=== PATIENT | female | born 1980 | race Caucasian/White ===

== ENCOUNTER 2019-01-20 07:23 | Day surgery (SDC) | payer OTHER ==
[2019-01-20 07:56] LABS: HCG UR QUAL NEGATIVE
[2019-01-20] MEDS ORDERED: LACTATED RINGERS 1,000 ML IV ONE (08:20)
--- NOTE | 2019-01-20 08:36 | ANESTHESIA ---
Pre-Anesthesia VS, & Labs - Diagnosis left ovarian cyst, pelvic pain - Procedure left laparoscopic ovarian cystectomy Vital Signs: Temp Pulse Resp BP Pulse Ox 36.1 C L 78 16 125/74 100 01/20/19 07:45 01/20/19 07:45 01/20/19 07:45 01/20/19 07:45 01/20/19 07:45 Height 5 ft 4.17 in Weight (kg) 70.9 kg - NPO >8 hours - Is Patient ?: No - Lab Results Lab results reviewed: Yes Home Medications and Allergies Home Medications: Ambulatory Orders Cholecalciferol (Vitamin D3) [Vitamin D3] 1,000 unit PO 01/10/19 Cholecalciferol (Vitamin D3) [Vitamin D3] 1,000 unit PO 01/10/19 Allergies/Adverse Reactions: Allergies Allergy/AdvReac Type Severity Reaction Status Date / Time No Known Drug Allergies Allergy Verified 01/10/19 11:32 Anes History & Medical History - Anesthetic History Anesthesia Complications: reports: No previous complications Family history of Anesthesia Complications: Denies Family history of Malignant Hyperthermia: Denies - Medical History Cardiovascular: reports: None Pulmonary: reports: None Gastrointestinal: reports: None Urinary: reports: Other Musculoskeletal: reports: None Endocrine/Autoimmune: reports: None Skin: reports: None Exam General: Alert, Oriented x3, Cooperative, No acute distress Dental: WNL Mouth Openin Fingerbreadth Neck Mobility: Normal Mallampati classification: II Thyromental Distance: greater than 6 cm Respiratory: Lungs clear, Normal breath sounds, No respiratory distress, No accessory muscle use Cardiovascular: Regular rate, Normal S1, Normal S2, No murmurs Mental/Cognitive Status: Alert/Oriented X3, Normal for patient Cognitive Status: Within normal limits Plan Anesthesia Type: General Consent for Procedure(s) Verified and Reviewed: Yes Code Status: Attempt Resuscitation ASA classification: 1-Healthy patient Is this case an emergency?: No
[2019-01-20] MEDS ORDERED: BUPIVACAINE 0.25%-EPI 1:200000 PF 30 ML VIAL ONE (09:22)
[2019-01-20] MEDS ORDERED: PROPOFOL 200 MG/20 ML VIAL IVP ONE (10:00)
[2019-01-20] MEDS ORDERED: fentaNYL 100 MCG/2 ML VIAL IVP ONE (10:00)
[2019-01-20] MEDS ORDERED: LIDOCAINE-MPF 2% 5 ML VIAL IM ONE (10:00)
[2019-01-20] MEDS ORDERED: KETOROLAC 30 MG/ML VIAL IVP ONE (10:00)
[2019-01-20] MEDS ORDERED: GLYCOPYRROLATE 1 MG/5 ML VIAL IVP ONE (10:00)
[2019-01-20] MEDS ORDERED: ONDANSETRON 4 MG/2 ML VIAL IVP ONE (10:00)
[2019-01-20] MEDS ORDERED: DEXAMETHASONE 4 MG/ML VIAL IVP ONE (10:00)
[2019-01-20] MEDS ORDERED: MIDAZOLAM 2 MG/2 ML VIAL IVP ONE (10:00)
[2019-01-20] MEDS ORDERED: NEOSTIGMINE 1 MG/1 ML 10 ML MDV IVP ONE (10:00)
[2019-01-20] MEDS ORDERED: ROCURONIUM 50 MG/5 ML VIAL IVP ONE (10:00)
[2019-01-20] MEDS ORDERED: BUPIVACAINE 0.25%-EPI 1:200000 PF 10 ML VIAL SUBQ ONE (10:40)
[2019-01-20] MEDS ORDERED: HYDROcod/ACETAM 10 MG/325 MG TABLET PO PRN (11:03)
[2019-01-20] MEDS ORDERED: ONDANSETRON 4 MG/2 ML VIAL IVP PRN (11:03)
[2019-01-20] MEDS ORDERED: SILVER NITRATE APPLICATOR TOP ONE (11:10)
--- NOTE | 2019-01-20 11:20 | OPERATIVE REPORT ---
Operative Report - General Procedure Date: 01/20/19 Planned Procedure: Laparoscopic left ovarian cystectomy Pre-Op Diagnosis: Left ovarian cyst, left pelvic pain Procedure Performed: Laparoscopic left ovarian cystectomy, lysis of adhesions,fulguration of endometriosis Post Op Diagnosis: Endometriosis, VERONICA endometrioma, pelvic adhesions, simple ROV cyst - Procedure Note Primary Surgeon: Dr. Libra Montano Secondary Surgeon: Dr. Juvencio Shipley Anesthesia Provider: MALLY Adamson Anesthesia Technique: General ET tube, Local Pathology: None IV Fluids (mL): 300 Estimated Blood Loss (mL): 15 Urine Output (mL): 300 Complications: None - Other Other Information/Narrative: Indications: The patient is a 38-year-old 3 para 2 abortus 1 female here for laparoscopic surgery for evaluation and management of a persistent, enlarging complex left ovarian cyst, which may be contributing to her left pelvic and flank pain. Her pelvic ultrasound showed bilateral ovarian cysts, the left one appearing more complex, consistent with an endometrioma or benign solid tumor. A repeat ultrasound showed a right ovarian cyst that was resolving and simple in appearance but persistence and slight increase in size of the left ovarian cyst. The sono was initially completed in early September due to intermittent left lower quadrant left flank pain and sharp, deep dyspareunia that is pinching in quality. Her pain started with intermittent symptoms approximately 1 year ago and has gradually gotten worse. She has no other history of pelvic or abdominal pain and no history of dysmenorrhea. Menses are monthly and not heavy or painful. She has no intermenstrual bleeding, and she is using a ParaGard intrauterine device for control, which was placed after childbirth in 2014. She denies any bowel symptoms or bladder concerns.The risks, benefits, limitations, alternatives, and expectations of surgery were discussed. The consent was reviewed and signed prior to surgery. Findings: Exam under anesthesia noted the uterus was approximately 6 weeks in size and anteverted. There were no adnexal masses palpable. Operative findings were notable for visualization of the IUD strings (approximately 2 cm in length) prior to placement of the uterine manipulator. She had omental adhesions to the anterior peritoneum at the right lower quadrant extending to the midline. She had a second omental adhesion the right flank. The ovaries were adhered into the posterior cul-de-sac. Upon attempting to dissect the left ovary out, the cyst ruptured incidentally, and chocolate-like fluid was present, consistent with an endometrioma. Endometriosis lesions were noted on the left fallopian tube (cauterized) and anterior sigmoid colon (not cauterized). The right ovary was adhered to the posterior lower uterine segment and appeared to have a simple-appearing cyst, approximately 2 cm in diameter. The uterus and anterior cul-de-sac were normal in appearance. The fallopian tubes appeared edematous with viable-appearing fimbriated ends. The sigmoid colon was adhered into the posterior cul-de-sac as well. The deep cul-de-sac could not be visualized secondary to the adhesed organs. The liver edge and appendix were visualized and appeared normal. Procedure: The patient was taken to the operating room, where general endotracheal anesthesia was administered without difficulty. She was then positioned in the low dorsal lithotomy position with her lower extremities in Yellow Fin stirrups. Vagina, perineum, and abdomen were then prepped and draped in a sterile fashion, and a muniz catheter was placed for the duration of the surgery. Procedure Time-Out was then performed. A sterile bivalve speculum was then inserted into the vagina. The anterior lip of the cervix was grasped with a single-tooth tenaculum, then a Hulka tenaculum placed for uterine manipulation (given the presence of an IUD). The single-toothed tenaculum and speculum were then removed, and attention was turned to the laparoscopy. Quarter Marcaine was injected infraumbilically, then a 7-mm horizontal skin incision made. A Verrees needle was then inserted through the anterior layers of the abdominal wall with saline drop test suggesting intraperitoneal placement. Carbon dioxide gas insufflation was then performed with appropriate opening pressures noted. Once 2 L of gas was instilled, a 0-degree, 5 mm laparoscope was inserted into a 5 mm trocar and passed through the anterior layers of the abdominal wall using Optiview technique. Two additional ports were then placed at the left and right lower quadrants, first instilling local anesthetic, then placing the ports under direct visualization with the laparoscope. The right/midline omental adhesion was dissected down using cautery with a PlasmaKinetic. The right flank adhesion was left in situ, as it did not affect the surgical dissection and was not felt to be causing the patient any symptoms. The patient was placed into Trendelenberg and bowel swept out of the cul-de-sac. A physiologic adhesion of the sigmoid colon to the left lower pelvis was cauterized and dissected in order to allow better mobilization of the bowel out of the pelvis. The pelvis was visualized with the findings as noted above. Bovie cautery was utilized to fulgurate the endometriosis lesion on the left fallopian tube. The bed of the endometrioma, which was incidentally ruptured, was cauterized to achieve hemostasis. The pelvis was then extensively irrigated. At this point the laparoscopy was deemed complete, and all trocars were removed from the abdomen. The carbon dioxide gas was then allowed to escape. The incisions were then closed with 4-0 Monocryl in a subcuticular fashion followed by Dermabond skin adhesive. The uterine manipulator was removed, then the sterile bivalve speculum reinserted to ensure that the tenaculum sites were hemostatic. Silver nitrate was applied to achieve hemostasis, then the speculum was removed. At this point the procedure was deemed complete. The patient was then replaced supine, awakened, extubated, and transferred to the PACU in stable condition. There were no complications. Sponge, lap, and needle count were correct x 3.
[2019-01-20 11:45] VITALS: BP 112/74
== END 2019-01-20 12:11 | disposition home or self-care (01) ==
LOC: SDS 07:23
PROVIDERS: ATTEND Obstetrics & Gynecology
PROC: 0U554ZZ Destruction of Right Fallopian Tube, Percutaneous Endoscopic Approach (ICD-10-PCS; 2019-01-20)
PROC: 0U564ZZ Destruction of Left Fallopian Tube, Percutaneous Endoscopic Approach (ICD-10-PCS; principal; 2019-01-20 08:45)
DX: N80.1 Endometriosis of ovary (principal); N73.6 Female pelvic peritoneal adhesions (postinfective); N80.2 Endometriosis of fallopian tube; N80.5 Endometriosis of intestine; N83.291 Other ovarian cyst, right side; E55.9 Vitamin D deficiency, unspecified
CPT/HCPCS: 58670; 81025; J7120

== ENCOUNTER 2022-11-18 10:02 | Outpatient (CLI) | payer OTHER ==
--- NOTE | 2022-11-21 08:59 | MRI Report ---
PROCEDURE: HIP WO - RT INDICATIONS: RIGHT HIP PAIN TECHNIQUE: Noncontrast coronal T1 spin echo and STIR through the bony pelvis. Coronal and axial T2 fast spin ec ho with fat saturation, sagittal T1 spin echo, and oblique axial T2 fast spin echo with fat saturatio n through the hip. COMPARISON: None. FINDINGS: Image quality: Excellent. Bones and joints: Bone marrow of the pelvic ring and proximal femurs show normal signal throughout. No intraosseous lesions or fractures. No avascular necrosis of the femoral heads. Mild disc desicc ation and facet hypertrophy and included lumbar spine. Mild degenerative changes of the pubic symphys is. Tendons: There is partial tearing of the posterior gluteus minimus and anterior gluteus medius tendo ns at their insertion onto the right greater trochanter with small trochanteric and subgluteal bursal effusions. The iliopsoas tendon appears intact, without adjacent bursal fluid collections. The orig in of the hamstring tendon demonstrates mild tendinosis. The tendons for the direct and indirect hea ds of the rectus femoris muscle appear intact. Labrum and cartilage: The acetabular labrum appears intact. Cartilage surface of the femoral head a ppears of normal thickness. Mild subchondral sclerosis and marginal osteophyte formation at the right hip. There is normal morphology of the femoral head and acetabulum. Soft tissues: Visualized muscles demonstrate normal bulk and internal signal. The proximal sciatic neurovascular bundle appears normal adjacent to the hamstring tendons. No acute abnormality is seen i n the included pelvis. An intrauterine device is seen in appropriate position. IMPRESSION: 1.Distal right gluteus medius and minimus tendinosis and partial intrasubstance tearing at the insert ion onto the right greater trochanter. Small adjacent trochanteric and subgluteal bursal effusions. 2.Minimal right hip osteoarthrosis. No displaced labral tear. 3.Mild proximal right hamstring tendinosis. 4.Mild degenerative changes in the included lumbar spine. Reviewed by: Salvador Bailey MD on 11/21/2022 8:58 AM PST Approved by: Salvador Bailey MD on 11/21/2022 8:58 AM PST Station ID: [id number]
== END 2022-11-18 10:03 | disposition home or self-care (01) ==
LOC: DI 10:02
PROVIDERS: ATTEND Family Medicine
DX: S76.011A Strain of muscle, fascia and tendon of right hip, initial encounter (principal); M16.11 Unilateral primary osteoarthritis, right hip; M67.951 Unspecified disorder of synovium and tendon, right thigh; M47.816 Spondylosis without myelopathy or radiculopathy, lumbar region